=== PATIENT | male | born 1950 | race Caucasian/White ===

== ENCOUNTER 2018-01-18 16:41 | Emergency (ER) | payer SELFPAY ==
[~2018-01-18] VITALS: Ht 177.8 cm; Wt 72.4 kg
[2018-01-18 16:44] VITALS: BP 167/95
[2018-01-18] MEDS ORDERED: PEN-VEE K,VEET500 MG PO (17:35)
[2018-01-18] MEDS ORDERED: ULTRAM50 MG PO (17:35)
== END 2018-01-18 17:58 | disposition home or self-care (01) ==
LOC: EME 16:41
DX: K02.9 Dental caries, unspecified (principal)
CPT/HCPCS: 99281; 99283